=== PATIENT | female | born 1935 | race Caucasian/White ===

== ENCOUNTER 2018-07-02 16:37 | Emergency (ER) | payer MEDICARE ==
[~2018-07-02] VITALS: Ht 167.6 cm; Wt 53.5 kg
[2018-07-02 16:42] VITALS: BP 164/78
[2018-07-02] MEDS ORDERED: TETanus/Pertussis (Acell)/Diphther VAC/PF (Tdap-Adult) 0.5ml syringe IM ONE (19:20)
== END 2018-07-02 19:29 | disposition home or self-care (01) ==
LOC: ER 16:38
DX: S01.81XA Laceration without foreign body of other part of head, initial encounter (principal); Z90.49 Acquired absence of other specified parts of digestive tract; W01.198A Fall on same level from slipping, tripping and stumbling with subsequent striking against other object, initial encounter; Y93.89 Activity, other specified; Y92.098 Other place in other non-institutional residence as the place of occurrence of the external cause; Y99.9 Unspecified external cause status
CPT/HCPCS: 12011; 90471; 90715; 99283

== ENCOUNTER 2019-11-09 09:59 | Emergency (ER) | payer MEDICARE ==
[~2019-11-09] VITALS: Ht 170.2 cm; Wt 55.9 kg
[2019-11-09] MEDS ORDERED: ipratropium/albuterol 3ml nebule NEB ONE (11:15)
[2019-11-09] MEDS ORDERED: normal saline 1000ML IV soln IVB ONE (11:15)
[2019-11-09] MEDS ORDERED: oseltamivir phos 75mg capsule PO ONE (11:15)
[2019-11-09] MEDS ORDERED: methylPREDNISolone sod succ 125mg/2ml vial IV ONE (11:15)
[2019-11-09] MEDS ORDERED: acetaminophen 325mg tablet PO STA (11:15)
[2019-11-09 11:51] LABS: BASOPHILS % (AUTO) 0.4 % (0-1); EOSINOPHILS % (AUTO) 0.2 % (0-6); HEMOGLOBIN 13.3 g/dl (12.0-16.0); LYMPHOCYTES # (AUTO) 0.2 X10'3 (1.1-4.8); LYMPHOCYTES % (AUTO) 1.7 % (21-51); MEAN CORPUSCULAR HEMOGLOBIN 30.9 PG (27.0-31.0); MEAN CORPUSCULAR HGB CONC 34.2 g/dL (33.0-36.5); MEAN CORPUSCULAR VOLUME 90.3 FL (78-98); MEAN PLATELET VOLUME 7.7 FL (7.4-10.4); MONOCYTES # (AUTO) 0.5 X10'3 (0-0.9); MONOCYTES % (AUTO) 4.6 % (2-12); NEUTROPHILS # (AUTO) 9.9 X10'3 (1.8-7.7); NEUTROPHILS % (AUTO) 93.1 % (42-75); PLATELET COUNT 277 X10'3 (140-440); RED BLOOD COUNT 4.32 X10'6 (4.20-5.60); RED CELL DISTRIBUTION WIDTH 13.3 % (11.5-14.5); WHITE BLOOD COUNT 10.6 X10'3 (4.5-11.0)
[2019-11-09] MEDS ORDERED: TAM75C PO (12:00)
[2019-11-09] MEDS ORDERED: PRED20TA PO (12:00)
[2019-11-09] MEDS ORDERED: ONDA4TAB6 PO (12:00)
[2019-11-09] MEDS ORDERED: AZIT-63 PO (12:00)
[2019-11-09 12:05] LABS: PARTIAL THROMBOPLASTIN TIME 26 SECONDS (22-32)
[2019-11-09 12:08] LABS: ALANINE AMINOTRANSFERASE 23 U/L (12-78); ALBUMIN 3.7 G/DL (3.4-5.0); ALBUMIN/GLOBULIN RATIO 1.3 (1.1-1.5); ALKALINE PHOSPHATASE 69 IU/L (46-116); ANION GAP 6 (8-16); ASPARTATE AMINO TRANSFERASE 20 U/L (10-37); BILIRUBIN,TOTAL 0.3 MG/DL (0.1-1.0); BLOOD UREA NITROGEN 15 MG/DL (7-18); BUN/CREATININE RATIO 18.5 (6.6-38.0); CALCIUM 8.8 MG/DL (8.5-10.1); CHLORIDE 107 MMOL/L (99-107); CREATININE 0.81 MG/DL (0.40-0.90); GLUCOSE 108 MG/DL (70-104); POTASSIUM 4.1 MMOL/L (3.5-5.1); SODIUM 141 MMOL/L (135-145); TOTAL CARBON DIOXIDE 27.8 MMOL/L (24-32); TOTAL PROTEIN 6.6 G/DL (6.4-8.2); eGFR 67 ML/MIN
[2019-11-09 13:03] VITALS: BP 114/43
== END 2019-11-09 13:04 | disposition home or self-care (01) ==
LOC: ER 10:00
DX: J40 Bronchitis, not specified as acute or chronic (principal); F03.90 Unspecified dementia, unspecified severity, without behavioral disturbance, psychotic disturbance, mood disturbance, and anxiety; Z90.49 Acquired absence of other specified parts of digestive tract; Z79.2 Long term (current) use of antibiotics; Z79.899 Other long term (current) drug therapy
CPT/HCPCS: 36415; 71045; 80053; 83605; 83880; 84145; 84484; 85025; 85610; 85730; 87040; 87502; 87503; 93005; 94640; 96361; 96374; 99284; J2930; J7030; 94760

== ENCOUNTER 2025-02-09 10:38 | Outpatient (CLI) | payer MEDICARE ==
[~2025-02-09 10:38] MED LIST: ONDA4TAB6 PO; iohexol 300mg/ml 100ml inj. ONE
[2025-02-09] MEDS ORDERED: iohexol 300mg/ml 100ml inj. ONE (11:40)
--- NOTE | 2025-02-09 12:43 | RADIOLOGY REPORT ---
Indication: RIGHT LOWER QUADRANT ABDOMINAL SWELLING, MASS AND Technique: CT axial images of the abdomen and pelvis are obtained with and without intravenous contra st. Coronal and sagittal reformats were obtained. Radiation Dose Information: CTDI volume is 7.1 mGy. Dose-length product is 659 mGy*cm Comparison: None FINDINGS: The lung bases demonstrate pulmonary tree-in-bud nodularity, [id number]. Left lower lobe nodular lesion measuring 2.1 cm. Right lower lobe nodular lesion measuring 1.3 cm. Adrenal glands, spleen unremarkable in shape. Pancreatic parenchymal atrophy. No CT evidence for cho lelithiasis. 8 mm right hepatic lobe hypodensity, too small to characterize statistically likely repr esent a cyst. Other smaller hepatic hypodense lesions. Common bile duct measures 9 mm. There is no hydronephrosis or nephrolithiasis. Stomach partially distended. Small bowel loops are moderately distended. Colonic diverticular diseas e. Moderate volume stool in the colon. No secondary signs for appendicitis present. Mucosal hyperemia of the rectosigmoid colon. Abdominal aortic atherosclerotic disease and tortuosity. Bladder is partially distended. No free pelv ic fluid. No inguinal lymphadenopathy. [id number] bilateral sacroiliac degenerative joint disease. Moderate to severe thoracolumbar degenerative disc disease. Lumbar levocurvature. IMPRESSION: 1. Colonic diverticular disease. 2. Mucosal hyperemia of the rectosigmoid colon. Correlate for colitis, inflammatory bowel disease. 3. Moderate volume stool in the colon. 4. Dilatation of the common bile duct to 9 mm which may be age related. Abdominal ultrasound can be o btained for further characterization. Correlate with appropriate lab values to exclude obstructive e tiology. 5. Atherosclerotic disease. 6. Other findings as described.
== END 2025-02-10 23:59 | disposition home or self-care (01) ==
LOC: RAD 10:38
PROVIDERS: ATTEND Physician Assistant
DX: R19.03 Right lower quadrant abdominal swelling, mass and lump (principal); Q25.46 Tortuous aortic arch; M46.1 Sacroiliitis, not elsewhere classified; M51.34 Other intervertebral disc degeneration, thoracic region; M43.8X6 Other specified deforming dorsopathies, lumbar region; I25.10 Atherosclerotic heart disease of native coronary artery without angina pectoris; I70.0 Atherosclerosis of aorta
CPT/HCPCS: 74178; Q9967